=== PATIENT | male | born 1940 | race Caucasian/White ===

== ENCOUNTER 2021-02-27 07:34 | Outpatient (CLI) | payer MEDICARE | END 2021-02-27 07:35 | disposition home or self-care (01) | LOC: CSHCT 07:34 | PROVIDERS: ATTEND Specialist | DX: I77.819 Aortic ectasia, unspecified site (principal) | CPT/HCPCS: 74174 ==

== ENCOUNTER 2021-11-20 08:18 | Outpatient (CLI) | payer MEDICARE ==
[2021-11-20 10:34] LABS: Hemoglobin 10.3 g/dL (13.5-17.5); Mean Corpuscular HGB CONC 33.6 g/dL (32.0-36.0); Mean Corpuscular Volume 107.3 fl (81.2-95.1); Mean Platelet Volume 10.3 fl (7.4-10.4); Platelet Count 155 10x3/uL (150-450); RBC Distribution Width 15.4 % (11.5-14.5); Red Blood Cell (RBC) Count 2.86 10x6/uL (4.32-5.72); White Blood Cell (WBC) Count 4.3 10x3/uL (3.5-10.5)
[2021-11-20 10:46] LABS: Anion Gap 14 mmol/L (10-20); BUN (Urea Nitrogen) 37 mg/dL (8.4-25.7); Calc. Creatinine Clearance 0 mL/min (70-130); Calcium 8.6 mg/dL (7.8-10.44); Carbon Dioxide 22 mmol/L (23-31); Chloride 102 mmol/L (98-107); Estimated GFR 36; Glucose 105 mg/dL (83-110); Potassium 4.5 mmol/L (3.5-5.1); Sodium 133 mmol/L (136-145)
== END 2021-11-20 08:19 | disposition home or self-care (01) ==
LOC: CSHLAB 08:18
PROVIDERS: ATTEND Otolaryngology Otolaryngic Allergy
DX: Z01.812 Encounter for preprocedural laboratory examination (principal); Z20.822 Contact with and (suspected) exposure to COVID-19
CPT/HCPCS: 80048; 85027; 87811

== ENCOUNTER 2021-11-23 09:07 | Day surgery (SDC) | payer MEDICARE ==
[2021-11-21 15:27] VITALS: BMI 21.7
[2021-11-23] MEDS ORDERED: PROPOFOL 20 ML ONE (11:19)
[2021-11-23] MEDS ORDERED: Lidocaine 1% PF 5 ML VIAL ONE (11:20)
[2021-11-23] MEDS ORDERED: Fentanyl 100 MCG/2 ML VIAL ONE ×2 (11:21→13:17)
[2021-11-23] MEDS ORDERED: Lidocaine 1% (PF) 30 ML VIAL ONE (11:22)
[2021-11-23] MEDS ORDERED: CEFAZOLIN 1 GM VIAL ONE (11:22)
[2021-11-23] MEDS ORDERED: Succinylcholine 200 MG/10 ml SYRINGE FS ONE ×2 (11:47→12:04)
[2021-11-23] MEDS ORDERED: Isosulfan Blue 50 MG/5 ML VIAL ONE (11:52)
[2021-11-23] MEDS ORDERED: Ondansetron PF 4 MG/2 ML Vial ONE (12:56)
[2021-11-23] MEDS ORDERED: HYDROcodone/Acetaminophen 5/325 mg Tablet ONE (14:20)
== END 2021-11-23 15:25 | disposition home or self-care (01) ==
LOC: CSHSDC 09:07
PROVIDERS: ATTEND Otolaryngology Otolaryngic Allergy
PROC: 0HB1XZZ Excision of Face Skin, External Approach (ICD-10-PCS; principal; 2021-11-23)
DX: C43.39 Malignant melanoma of other parts of face (principal)
CPT/HCPCS: 11643; 12052; 78195; A9541; Q9968; J0690; J2001; J2405; J2704; J3010

== ENCOUNTER 2023-11-04 13:42 | Emergency (ER) | payer MEDICARE ==
[2023-11-04] MEDS ORDERED: Lidocaine 1% w/Epinephrine 1:200K 30 ML VIAL ONE (14:44)
[2023-11-04 15:28] LABS: #Basophils 0.03 10x3/uL (0.0-0.2); #Eosinphils 0.02 10x3/uL (0.0-0.5); #Monocytes 0.66 10x3/uL (0.0-1.1); #Neutrophils 6.86 10x3/uL (1.5-8.4); %Basophils 0.4 % (0.0-2.0); %Eosinophils 0.2 % (0.0-6.0); %Lymphocytes 7.4 % (18.0-47.0); %Neutrophils 83.5 % (40.0-75.0); Hemoglobin 11.3 g/dL (13.5-17.5); Mean Corpuscular HGB CONC 34.2 g/dL (32.0-36.0); Mean Corpuscular Hemoglobin 36.9 pg (27.0-33.0); Mean Corpuscular Volume 107.8 fL (81.2-95.1); Mean Platelet Volume 10.9 fL (7.4-10.4); Platelet Count 147 10x3/uL (150-450); RBC Distribution Width 17.9 % (11.5-14.5); Red Blood Cell (RBC) Count 3.06 10x6/uL (4.32-5.72); White Blood Cell (WBC) Count 8.2 10x3/uL (3.5-10.5)
[2023-11-04 15:40] LABS: INR-International Normal Ratio 1.3; PTT 34.6 sec (22.0-33.0); Prothrombin Time 13.5 sec (9.5-12.1)
[2023-11-04 15:44] LABS: ALT (SGPT) 46 U/L (8-55); AST (SGOT) 52 U/L (5-34); Albumin 3.2 g/dL (3.4-4.8); Alkaline Phosphatase 136 U/L (40-110); Anion Gap 22 mmol/L (10-20); BUN (Urea Nitrogen) 54 mg/dL (8.4-25.7); Bilirubin, Total 0.7 mg/dL (0.2-1.2); Calc. Creatinine Clearance 0 mL/min (70-130); Calcium 8.8 mg/dL (7.8-10.44); Carbon Dioxide 25 mmol/L (23-31); Chloride 91 mmol/L (98-107); Estimated GFR 11; Globulin 3.4 g/dL (2.4-3.5); Glucose 93 mg/dL (83-110); Potassium 5.4 mmol/L (3.5-5.1); Protein, Total 6.6 g/dL (5.8-8.1); Sodium 133 mmol/L (136-145)
[2023-11-04 15:53] LABS: Critical Call Chem Troponin I NUR.JPM at 1552; Troponin I 0.769 ng/mL (< 0.028)
== END 2023-11-04 16:50 | disposition home or self-care (01) ==
LOC: CSHERS 13:42
DX: S01.01XA Laceration without foreign body of scalp, initial encounter (principal); R55 Syncope and collapse; I12.0 Hypertensive chronic kidney disease with stage 5 chronic kidney disease or end stage renal disease; E78.5 Hyperlipidemia, unspecified; Z55.6 Problems related to health literacy; W22.8XXA Striking against or struck by other objects, initial encounter
CPT/HCPCS: 12002; 36415; 70450; 72125; 80053; 83880; 84484; 85025; 85610; 85730; 93005